=== PATIENT | male | born 1940 | race Caucasian/White ===

== ENCOUNTER 2016-11-24 00:53 | Inpatient (IN) | payer OTHER ==
--- NOTE | ~2016-11-24 | OR ---
Unit #: [id number] #: [id number] Patient: SHAYLA MILLER [id number] [facility] [[email or web address] [place] [id number] [facility]. [place], [place] [address] [id number] Brendan MR#: [id number] NAME: SHAYLA MILLER ROOM: 236 Date of Procedure: 11/28/2016 Admission Date: 11/24/2016 Surgeon: Genaro Carter III, M.D. : 1940 Attending Physician: La Recio M.D. OPERATIVE REPORT PREOPERATIVE DIAGNOSIS Small-bowel obstruction. POSTOPERATIVE DIAGNOSIS Small-bowel obstruction secondary to adhesions. PROCEDURES PERFORMED Exploratory laparotomy with lysis of adhesions. ANESTHESIA General. SPECIMENS None. COMPLICATIONS None apparent. ESTIMATED BLOOD LOSS Minimal. INDICATIONS FOR PROCEDURE This is a 75-year-old gentleman, who has findings consistent with small-bowel obstruction. He has not had any prior abdominal surgeries before. He is here today for exploratory laparotomy. DESCRIPTION OF PROCEDURE After consent was obtained, the patient was brought to the operating room and placed in the supine position. General anesthetic was administered. His abdomen was prepped and draped in standard surgical fashion. It was noted that his abdomen was distended. I made a small midline laparotomy and entered into the peritoneal cavity without any difficulty. He had some serous fluid present within the abdominal cavity that was evacuated. I then ran the small bowel, noted that the proximal bowel was dilated. I came to a spot in the right upper quadrant, where a knuckle of bowel was tucked up into what was either a small band of adhesion or small internal hernia. This was divided and I had immediate release of the bowel obstruction. The area of that bowel was narrowed; however, after observing it for several minutes did open up and I was able to milk enteric contents through that area easily. There was no evidence of any necrosis anywhere. I then had excellent hemostasis. I did not find any other abnormal intraabdominal pathology, although my exploration was Unit #: [id number] #: [id number] Patient: SHAYLA MILLER limited through the smaller incision. I then irrigated and had excellent hemostasis. All needle, sponge, and instrument counts were correct x2. I reapproximated the midline fascia with an interrupted #1 Vicryl suture. The skin edges were reapproximated with stapling device. He tolerated the procedure without any problems and returned to the recovery room in stable condition. Dictated by... Genaro Carter III, M.D. VCL/cherelle TD: 11/28/2016 23:12 JOB #: [id number] OPERATIVE REPORT Page 1 of 1 X Genaro Carter III, MD X PROCEDURE OPERATIVE NOTE
--- NOTE | ~2016-11-24 | CR4 ---
[facility] A Service of [facility] [place] [facility] RADIOLOGY TEXT RESULTS PATIENT: SHAYLA MILLER LOCATION: C2A 236-01 : 38 UNIT #: [id number] AGE: [address]: La Recio MD SEX: M ORDER DR: [id number] [facility] [address] [facility]. [place], [place] [address] [id number] I MR#: [id number] Acc #: [id number] NAME: SHAYLA MILLER : 1940 SEX: M STUDY DATE/TIME: 11/26/2016 12:16 UNIT: [facility] ROOM: [facility] STUDY DESCRIPTION: CR Abdomen Flat Upright or Dec Attending Physician: La Recio M.D. Ordering Physician: La Recio M.D. Primary Care Physician: Primary Care Physician No MEDICAL IMAGING REPORT This report is preliminary unless electronic signature is present EXAM Supine and upright AP views of the abdomen COMPARISON CT abdomen and pelvis dated November 24, 2016. INDICATION 75-year-old male with upper abdominal pain after endoscopy 4 days ago. FINDINGS There is no free subdiaphragmatic air. There is mild gaseous distension of colon in the right upper quadrant of the abdomen with gas distended small bowel loops seen throughout the abdomen, measuring up to approximately 3.1 cm in caliber. Degenerative disc and endplate changes are noted at T9-T10 through T11-T12. There is also degenerative disc change at L4-L5, likely L5-S1 as well. Previously on CT there was a short loop of abnormally dilated small bowel which is actually just under normal limits in caliber. IMPRESSION Increasing diffuse abnormal mild dilatation of small bowel loops throughout the abdomen measuring up to 3.1 cm as compared to two days ago. Findings could reflect an ileus although they are worrisome for developing small bowel obstruction. No perforation. Dictated by... Dean Avilez M.D. THIS IS AN ELECTRONICALLY VERIFIED REPORT Dean Avilez M.D. at 12/03/2016 1:33 PM ANDREA/lino TD: 11/26/2016 13:08 [facility] A Service of [facility] [place] [facility] RADIOLOGY TEXT RESULTS PATIENT: SHAYLA MILLER LOCATION: A 236-01 : 38 UNIT #: [id number] AGE: [address]: La Recio MD SEX: M ORDER DR: JOB #: [id number] MEDICAL IMAGING REPORT Page 1 of 1 COPY
--- NOTE | ~2016-11-24 | OR ---
Unit #: [id number] #: [id number] Patient: SHAYLA MILLER [id number] [address] [place], [place] [address] [id number] I MR#: [id number] NAME: SHAYLA MILLER ROOM: 236 Date of Procedure: 12/06/2016 Admission Date: 11/24/2016 Surgeon: Vernon Pennington M.D. : 1940 Attending Physician: La Recio M.D. OPERATIVE REPORT PREOPERATIVE DIAGNOSIS Urinary retention. POSTOPERATIVE DIAGNOSIS Urinary retention. PROCEDURES PERFORMED Cystoscopy, transurethral resection of prostate. ANESTHESIA General. DESCRIPTION OF PROCEDURE After informed consent, he was taken to the operating room and placed under general anesthetic. He was positioned in lithotomy. His penis and perineum were prepped and draped in the usual sterile fashion. Cystoscopy was performed. Showing trilobar hyperplasia. He had edema in his bladder wall secondary to the catheter. There were no tumors visible. The entire bladder was inspected. The resectoscope was used and prostate tissue was resected in a systematic fashion starting at the 6 o'clock position. The resection was carried out to the verumontanum, but not beyond it and not beyond the external sphincter. The resection was also carried out down to the capsule, but not beyond the capsule. The prostate chips were irrigated out and sent to Pathology. Repeat inspection of the bladder showed normal-appearing left and right ureteral orifices; they were at good location. There was clear efflux of urine from left and right. There were no tumors visible. At the end of the procedure, there was no pulsatile bleeding. Hemostasis was achieved using electrocautery. A 3-way catheter was placed to drainage and continuous bladder irrigation was started and will continue postop. The patient tolerated the procedure well. He will be taken to recovery and returned to the floor. Dictated by... Killian Ysot/cherelle TD: 12/07/2016 08:00 JOB #: [id number] Unit #: [id number] #: [id number] Patient: SHAYLA MILLER OPERATIVE REPORT Page 1 of 1 X Vernon Pennington MD PROCEDURE OPERATIVE NOTE
--- NOTE | ~2016-11-24 | DS ---
Unit #: [id number] #: [id number] Patient: SHAYLA MILLER [id number] [facility]. [address] [address] [id number] I MR#: [id number] NAME: SHAYLA MILLER ROOM: 236 Age: 75 Sex: M Admission Date: 11/24/2016 : 1940 Discharge Date: 12/08/2016 Attending Physician: La Recio M.D. Primary Care Physician: No Primary Care Physician DISCHARGE SUMMARY DIAGNOSIS ON ADMISSION Abdominal pain. DIAGNOSES ON DISCHARGE 1. Small bowel obstruction status post exploratory laparotomy and lysis of adhesion. 2. Acute urinary retention status post transurethral resection of prostate. 3. Acute respiratory failure, resolved. 4. Bilateral knee synovitis, resolved. CONSULTATIONS 1. Dr. Carter in Surgical consultation. 2. Dr. Colunga in Orthopaedic consultation. 3. Dr. Segal in Pulmonary consultation. 4. Dr. Pennington in Urology consultation. LABS AND PROCEDURES DONE 1. The patient had an exploratory laparotomy done with lysis of adhesion. 2. The patient had a transurethral resection of prostate done. 3. The patient's creatinine is 0.9, sodium 134, potassium 4.4. 4. WBC 15.0, hemoglobin 11.5, platelet count 469. The patient has leukocytosis because of steroids. HOSPITAL COURSE This 75-year-old male was admitted to the hospital with abdominal pain. Details are as per admission H and P. Abdominal pain: Initially, it was thought the patient may have acute colitis but, as patient's symptoms did not improve, the patient had exploratory laparotomy done and lysis of adhesion for small bowel obstruction. The patient is tolerating diet and is doing well. Acute urinary retention: The patient failed a voiding trial. Therefore, Urology did transurethral prostate resection. The patient is tolerating it well and his urine is being cleared and is clearing up. The patient complained of bilateral knee pain. Orthopaedics saw patient in consultation and did an arthrocentesis. The synovial fluid was negative and culture was negative. The patient was started on Medrol Dosepak. The patient responded well and pain has resolved. Leukocytosis secondary to steroids. Unit #: [id number] #: [id number] Patient: PAUL,SHAYLA Today, the patient is comfortable, is anxious to go home. PHYSICAL EXAMINATION VITAL SIGNS: Temperature 97.9. Pulse 71 per minute. Respiratory rate 16 per minute. Blood pressure 133/59. HEENT: No conjunctival congestion. Sclerae nonicteric. NECK: Supple. Trachea is centered. RESPIRATORY: Breath sounds equal bilaterally. There are no wheezes or crackles. HEART: Regular rate and rhythm. S1, S2. ABDOMEN: Soft, nontender. Bowel sounds are present in all four quadrants. The patient's abdominal incision is clean and dry. NEUROLOGIC: The strength is 4+ bilaterally. SKIN: Warm and dry. CONDITION Stable. ACTIVITY As tolerated. MEDICATIONS 1. Rapaflo 8 mg daily. 2. Prilosec 40 mg p.o. daily. 3. Proscar 5 mg p.o. daily. FOLLOWUP The patient is advised to follow up with Dr. Carter and Dr. Pennington in one week. The patient is advised to call primary care physician or go to ER if his condition changes. The patient stated that, after following up with the surgeons, he will go back to [place] and will follow up with his primary care physician. Dictated by... Killian Mckenzie/nicolás TD: 12/08/2016 13:01 JOB #: [id number] CC: Killian Yost M.D. Vincent C. Lusco, III, M.D. DISCHARGE SUMMARY Page 1 of 1 X La Recio MD DISCHARGE SUMMARY
--- NOTE | ~2016-11-24 | CR4 ---
[facility] A Service of [facility] & [facility] RADIOLOGY TEXT RESULTS PATIENT: SHAYLA MILLER LOCATION: C2A 236-01 : 38 UNIT #: [id number] AGE: [address]: La Recio MD SEX: M ORDER DR: [id number] [facility] [address] [facility] [place] [facility]. [place], [place] [address] [id number] I MR#: [id number] Acc #: [id number] NAME: SHAYLA MILLER : 1940 SEX: M STUDY DATE/TIME: 12/02/2016 12:12 UNIT: [facility] ROOM: [facility] STUDY DESCRIPTION: CR Abdomen Flat Upright or Dec Attending Physician: La Recio M.D. Ordering Physician: Genaro Carter III, M.D. MEDICAL IMAGING REPORT This report is preliminary unless electronic signature is present EXAM Flat and upright views of the abdomen HISTORY Follow up postop ileus. COMPARISON STUDIES 11/26/2016. FINDINGS Today's flat and upright views of the abdomen again shows some dilated small bowel loops but they appear slightly less numerous than on 11/26/2016. There is oral contrast in the colon and the colon is not distended. There is no free air. Dictated by... Nick Rogers M.D. THIS IS AN ELECTRONICALLY VERIFIED REPORT Nick Rogers M.D. at 12/03/2016 7:02 AM FEL/pcl TD: 12/02/2016 21:18 JOB #: [id number] MEDICAL IMAGING REPORT Page 1 of 1 COPY
--- NOTE | ~2016-11-24 | A ---
[facility] Nutrition Therapy DATE: 11/29/16 Patient: SHAYLA IMLLER Physician: ALVIN [facility] [address] Room/Bed: [address] [place] [address], Zip: [place] [address] Admit Date: 11/24/16 Date of : 38 Height: 5 7 Weight: 165 75 NUTRITIONAL ASSESSMENT: REASON: NPO/CLEAR LIQUID DIET X 5 DAYS PT IS 75 Y.O. MALE ADMITTED FOR ABD PAIN PMH: GERD, BPH Anthropometrics: 5'7", WT: 165# ( 75 KG), BMI: 25.8 Labs: BUN: 26, CA+:7.1, ALB: 2.8, LIPASE: 15 Meds: KCL, PROTONIX, ZOFRAN, NACL I/O & Bowel function: 2370/1460 Skin Integrity: NG TUBE (JUST D/C'D) Estimated Nutrition Needs: INCREASED NEEDS 2' CURRENT CONDITION Assessment: CHART REVIEWED AND EVENTS NOTED. PT SEEN FOR NPO/CLEAR LIQUID DIET X 5 DAYS. PT REPORTS APPETITE IMPROVING, NOTING N/V/MIDEPIGASTRIC PAIN SLOWLY SUBSIDING. PT ADDS DECREASED PO INTAKE AND APPETITE A FEW DAYS PRIOR TO ADMIT 2' ABOVE. PT REPORTS CONSUMING "MOST OF HIS CLEAR LIQUID TRAYS" SINCE ADMIT. PT NOTES GOOD PO INTAKE AND APPETITE PRIOR TO ADMIT. PT DENIES ANY RECENT WEIGHT LOSS. PER RN AND CHART, PT IS S/P EXPLORATORY LAP FOR ?SMALL BOWEL OBSTRUCTION. PT IS ALSO S/P EGD REVEALING MILD GASTRITIS, CHRONIC REFLUX. RD ENCOURAGED SLOW GRADUAL PO INTAKE + SUPPLEMENT INTAKE, PT AGREED TO ENSURE CLEAR TID. PT AND FAMILY REPORTED NO DIET QUESTIONS AT THIS TIME. RD TO FOLLOW. SEE RECOMMENDATIONS BELOW. Dx: INADEQUATE PROTEIN-ENERGY INTAKE R/T CURRENT DIAGNOSIS AEB PT REPORT ABOVE, NPO/CLEAR X 5 DAYS. Intervention: 1. NON-CARBONATED CLEAR LIQUID DIET 2. ENSURE CLEAR TID W/MEALS Monitoring, Evaluation and Goals: 1. ORAL INTAKE; ADVANCE DIET AND CONSUME >50% OF MEALS AND SUPPLEMENTS 2. WEIGHTS; PROMOTE WEIGHT MAINTENANCE 3. LABS; WNL 4. GI; PROMOTE REGULAR GI FUNCTION MONITOR: [facility] Nutrition Therapy DATE: 11/29/16 Patient: SHAYLA MILLER Physician: ALVIN [facility] Room/Bed: [address] [place] [address], Zip: [place] [address] Admit Date: 11/24/16 Date of : 38 Height: 5 7 Weight: 165 75 -DIET ADVANCEMENT -SUPPLEMENT INTAKE -PO INTAKE/APPETITE Recommendations: 1. PLEASE ORDER MIXED FERRIS ENSURE CLEAR TID W/MEALS 2. ONCE MEDICALLY FEASIBLE, BEGIN WITH FULL LIQUID (BEYOND CLEAR LIQUID), ADVANCE TOLERATED TO LOW FIBER/GI SOFT 3. ONCE DIET ADVANCES BEYOND CLEARS, PLEASE ORDER STRAW ENSURE SHAKES TID W/MEALS (PER PT REQUEST) 4. ENCOURAGE SLOW GRADUAL PO INTAKE + SUPPLEMENTS 5. IF DIET DOES NOT ADVANCE BEYOND CLEARS, CONSULT RD FOR ALTERNATIVE NUTRITION SUPPORT RECOMMENDATIONS RD WILL F/U PER PROTOCOL PT IS MILDLY COMPROMISED Respectfully, CHICA LYNN MS, RD, LD [facility] cc: client file
--- NOTE | ~2016-11-24 | CT2 ---
[facility] A Service of [facility] & [facility] RADIOLOGY TEXT RESULTS PATIENT: SHAYLA MILLER LOCATION: [facility] 236-01 : 38 UNIT #: [id number] AGE: [address]: La Recio MD SEX: M ORDER DR: [id number] [facility] [address] [facility]. [place], [place] [address] [id number] MR#: [id number] Acc #: [id number] NAME: SHAYLA MILLER : 1940 SEX: M STUDY DATE/TIME: 11/24/2016 6:05 UNIT: [facility] ROOM: STUDY DESCRIPTION: CT Abd and Pelv W Cont Attending Physician: Néstor Singleton M.D. Ordering Physician: Gretchen Looney M.D. Primary Care Physician: Primary Care Physician No MEDICAL IMAGING REPORT This report is preliminary unless electronic signature is present EXAM CT abdomen and pelvis with IV contrast COMPARISON None. INDICATION 75-year-old male with mid abdominal pain radiating to the back for 1 day. Nausea and emesis. TECHNIQUE This CT examination was performed with one or more of the following radiation dose reduction techniques: automatic exposure control, adjustment of mA and/or kV according to patient size, and iterative reconstruction. FINDINGS Axial CT imaging of the abdomen and pelvis was performed after IV administration of 100 mL of Isovue-370. Coronal and sagittal reformats were constructed. Nodular density in the subcutaneous fat of approximately the 6 o'clock left chest may reflect gynecomastia. There are small fat-containing bilateral inguinal hernias. Prostate gland is unremarkable. There is multilevel thoracolumbar degenerative disc and endplate change. There are posterior disc osteophyte complexes at all levels of the lumbar spine. Multilevel mild degenerative facet disease of the lower lumbar spine. There is dextroscoliosis of the thoracolumbar junction. Dependent atelectasis in both lung bases. In the lingula, there are 3 pleural based nodular densities largest of which measures up to 9 mm. Separate noncalcified nodule in the left lower lobe measuring up to 6 mm with another noncalcified nodule left lower lobe measuring up to 4 mm. [facility] A Service of [facility] & [facility] RADIOLOGY TEXT RESULTS PATIENT: SHAYLA MILLER LOCATION: [facility] 236-01 : 38 UNIT #: [id number] AGE: [address]: La Recio MD SEX: M ORDER DR: There is a calcified granuloma separately in the left lower lobe. Noncalcified 4 mm nodule in the posterior basilar segment right lower lobe. There is a small hiatal hernia. Appendix is normal. In the right upper quadrant of the abdomen, there are 2 mildly fluid distended small bowel loops which appears stacked next to each other, with fat stranding in the supplying mesentery. This would suggest an acute enteritis. Developing small bowel obstruction cannot entirely be excluded. There is no adenopathy. No free fluid, or pneumoperitoneum. The abdominal aorta is mildly tortuous but normal in caliber. There is calcification at the origin of the celiac artery which remains widely patent. Bilateral pelvic phleboliths. Punctate densities seen near the gallbladder neck which may represent prominent enhancing vessels or alternatively layering cholelithiasis. No evidence of acute cholecystitis. Hyperenhancing lesion measuring up to 7 mm in the posterior segment of the right hepatic lobe, favoring a flash hemangioma. Spleen, adrenal glands and kidneys are unremarkable. No hydronephrosis or hydroureter. No evidence of renal or ureteral calculus. IMPRESSION 1. Short segment distension of 2 small bowel loops in the right upper quadrant of the abdomen stacked adjacent to each other with fat stranding into the supplying mesentery. The findings would seem to reflect an acute enteritis of uncertain etiology. Correlation to exclude signs of possible developing closed-loop bowel obstruction is recommended, which would be unlikely in the absence of known history of abdominal surgery. 2. Density in the subcutaneous fat of the left breast, possibly reflecting asymmetric gynecomastia. Correlation with physical exam is recommended. 1 could consider outpatient diagnostic mammography for further characterization. 3. Diffuse degenerative changes of the lumbar spine as described in the body of the report. 4. Small fat-containing inguinal hernias. 5. Multiple noncalcified left lung pulmonary nodules with a single calcified granuloma as well as a separate noncalcified nodule in the right lower lobe. The largest of these noncalcified nodules measures up to 9 mm. Given constellation of findings, this would seem to favor remote pulmonary granulomatous infection. CT chest followup without IV contrast is recommended in 3 months to document stability if there are no remote comparison CTs at another facility. 6. Small hiatal hernia. 7. Tiny enhancing vessels near the gallbladder neck versus cholelithiasis. No evidence of acute cholecystitis. 8. 7 mm hyperenhancing focus in the posterior segment of the right hepatic lobe favoring either a flash hemangioma or a small arteriovenous malformation. Only in the setting of known liver disease or other history of malignancy, CT abdomen with and without contrast would be recommended for further evaluation. Otherwise no followup is indicated. [facility] A Service of [facility] RADIOLOGY TEXT RESULTS PATIENT: SHAYLA MILLER LOCATION: [facility] 236-01 : 38 UNIT #: [id number] AGE: [address]: La Recio MD SEX: M ORDER DR: Dictated by... Dean Avilez M.D. THIS IS AN ELECTRONICALLY VERIFIED REPORT Dean Avilez M.D. at 11/30/2016 2:25 PM ANDREA/tawnya TD: 11/24/2016 07:14 JOB #: [id number] MEDICAL IMAGING REPORT Page 1 of 1 COPY
--- NOTE | ~2016-11-24 | OR ---
Unit #: [id number] #: [id number] Patient: SHAYLA MILLER [id number] [address] [address] [id number] I MR#: [id number] NAME: SHAYLA MILLER ROOM: 334 Date of Procedure: 11/25/2016 Admission Date: 11/24/2016 Surgeon: Elieser Hand M.D. : 1940 Attending Physician: La Recio M.D. OPERATIVE REPORT PREOPERATIVE DIAGNOSIS Abdominal pain, rule out peptic ulcer disease. POSTOPERATIVE DIAGNOSES Mild antral gastritis, contusions of the cardia probably secondary to nasogastric tube, and evidence of chronic reflux. No ulcers or tumors seen. PROCEDURE PERFORMED Esophagogastroduodenoscopy with antral and esophageal biopsies. ANESTHESIA MAC. COMPLICATIONS None. ESTIMATED BLOOD LOSS Minimal. DESCRIPTION OF PROCEDURE After the patient was prepped and draped in the usual fashion, the scope was introduced through the mouth into the esophagus without difficulty. Stomach was intubated and insufflated. There was noted to be some very mild antral gastritis. There were no ulcers or tumors within the antrum. Pictures and biopsies were taken. Duodenum was intubated and insufflated. This was visually normal down through the fourth portion. The scope was brought back into the stomach. Body and cardia examined by retroflexion. There was some contused areas in the cardia, which were just adjacent to the nasogastric tube and I believe these are secondary to suction trauma. There were no other diagnostic abnormalities. There was not a hiatal hernia at the time of the examination. The scope was brought back into the lower esophagus. The Z-line was indistinct. There was evidence of chronic reflux, but no ulcers, tumors, or varices were present. Pictures and lower esophageal biopsies were taken. The proximal esophagus was visually within normal limits. With this, the scope was removed. The patient was taken to the recovery room in good condition. Dictated by... Elieser Hand M.D. Unit #: [id number] #: [id number] Patient: SHAYLA MILLER ISABELLE/cherelle TD: 11/25/2016 12:15 JOB #: [id number] OPERATIVE REPORT Page 1 of 1 X Elieser Hand PROCEDURE OPERATIVE NOTE
--- NOTE | ~2016-11-24 | CO ---
Unit #: [id number] #: [id number] Patient: SHAYLA MILLER [id number] [address] [place], [place] [address] [id number] I MR#: [id number] NAME: SHAYLA MILLER ROOM: 236 Age: 75 Sex: M Admission Date: 11/24/2016 : 1940 Attending Physician: La Recio M.D. Consultation Date: 12/03/2016 CONSULTATION REPORT REASON FOR CONSULTATION Shortness of breath. HISTORY OF PRESENT ILLNESS A 75-year-old gentleman, who denies any diagnosed lung disease, although he did have increasing dyspnea on exertion prior to admission. He was admitted with abdominal discomfort. Ultimately, was found to have small bowel obstruction and underwent exploratory laparotomy with lysis of adhesions. We were asked to see the patient today by Dr. Carter. He denies fever, sputum production, chest pain, or hemoptysis. He has been told that he has wheezing on occasion, but he has never perceived wheezing himself. PAST MEDICAL HISTORY Remarkable for; 1. Benign prostatic hypertrophy. 2. Urinary retention. 3. He denies any heart disease or lung disease. HOME MEDICATIONS 1. Flomax. 2. Prilosec. 3. Proscar. ALLERGIES No known medical allergies. SOCIAL HISTORY Quit smoking in the 1960s. He actually is from [place], visiting his girlfriend here. 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 FAMILY HISTORY No familial lung disease, but significant heart disease. REVIEW OF SYSTEMS He has developed urinary retention and is following him. He developed knee pain and effusion, and Ortho is seeing him and I believe he is being treated for pseudogout. He denies fever, chest pain, palpitations, appropriate abdominal pain from his surgery. No leg pain or swelling. He does have urinary retention. He has not noticed any hematuria. No focal weakness or paresthesias. He does snore. He does complain of "something falling back in my throat when I lay down," which is probably his uvula. PHYSICAL EXAMINATION Unit #: [id number] #: [id number] Patient: SHAYLA MILLER GENERAL: Reveals a patient, who is in no acute distress. On 2 L. VITAL SIGNS: He is afebrile. Pulse 68, respiratory rate 16, blood pressure 144/78, and 5 foot 7 inches, and 165 pounds. HEENT: Pupils are equal, round, and reactive to light. Sclerae are anicteric. Head is atraumatic. NECK: Supple. No supraclavicular or cervical adenopathy appreciated. Jugular venous pressures appear normal. Mucous membranes are moist. Mallampati class IV oropharynx. He is edentulous. CHEST: He did have crackles posteriorly some of which cleared with deep inhalation maneuvers; however, he had some persistent fine crackles in right lower lobe greater than left. There was no wheeze or stridor. CARDIAC: Reveals regular rate and rhythm. No pathologic murmur, rub, or gallop. ABDOMEN: Postop. Appropriately tender. EXTREMITIES: Reveal no clubbing, cyanosis, or edema. No calf tenderness. SKIN: Warm and dry without rash or diaphoresis. NEUROLOGIC: Grossly intact. No focal motor or sensory deficits. DIAGNOSTICS STUDIES IMAGING STUDIES: Chest x-ray has just been performed; tiny pleural effusions. I do not see any pneumonia. I do not see any definite interstitial lung disease. Formal report is pending. LABORATORY STUDIES: BUN is 12 and creatinine 0.9. White blood cell count is 17, hemoglobin 11.4, and platelet count is 331. Urinalysis; trace protein otherwise negative. IMPRESSION 1. Shortness of breath, which even pre-dated admission. His shortness of breath currently is aggravated at least in part, by atelectasis. He may have some underlying fibrosis based on history and exam. I doubt that there is acute pneumonia. Small pleural effusion at least raise the possibility of pulmonary edema. 2. Postop small bowel obstruction and exploratory lap. 3. Pseudogout. 4. Urinary retention. 5. DNR status. PLAN Incentive spirometry. Follow up formal x-ray report. Nebulize bronchodilators. We will check BNP and procalcitonin level on today's blood. Ultimately he will need PFTs and if restrictive, high-resolution CAT scan of the chest as an outpatient. This likely will have to be done in [place] after he is recovered from his abdominal surgery. If his BNP is elevated, we will check an echocardiogram. Consider outpatient evaluation of sleep apnea with nocturnal polysomnography. Dictated by... Jamil Segal M.D. ABIGAIL/cherelle TD: 12/03/2016 16:59 JOB #: [id number] Unit #: [id number] #: [id number] Patient: PAULSHAYLA CONSULTATION REPORT Page 1 of 1 X Jamil Segal MD CONSULTATION REPORT
--- NOTE | ~2016-11-24 | CR63 ---
[facility] A Service of [facility] & [facility] RADIOLOGY TEXT RESULTS PATIENT: SHAYLA MILLER LOCATION: C2A 236- : 38 UNIT #: [id number] AGE: [address]: La Recio MD SEX: M ORDER DR: [id number] [facility] [address] [facility]. [place], [place] [address] [id number] I MR#: [id number] Acc #: [id number] NAME: SHAYLA MILLER : 1940 SEX: M STUDY DATE/TIME: 12/03/2016 13:44 UNIT: A ROOM: 236 STUDY DESCRIPTION: CR Chest 2 View Attending Physician: La Recio M.D. Ordering Physician: La Recio M.D. Primary Care Physician: Primary Care Physician No MEDICAL IMAGING REPORT This report is preliminary unless electronic signature is present EXAM Two views of the chest, 12/03/16 HISTORY Short of air, weakness, altered mental status. Two days' duration. FINDINGS PA and lateral radiographs of the chest are presented. No comparisons. Degenerative changes in the spine. No acute-appearing bony abnormality. Heart adrpmw-su-ocznm limits of normal in size. Lungs well inflated. Blunting of the bilateral posterior costophrenic sulci on lateral view suggesting trace bilateral pleural effusions. No dense airspace disease is seen. There is no evidence of pulmonary vascular congestion or parenchymal edema. No pneumothorax. No suspicious nodule. Bowel gas pattern in upper abdomen shows air-filled but not pathologically dilated loops of small bowel and colon. No free air. Dictated by... Bhupendra Jenkins M.D. THIS IS AN ELECTRONICALLY VERIFIED REPORT Bhupendra Jenkins M.D. at 12/04/2016 11:31 AM RICHA/criselda TD: 12/03/2016 23:26 JOB #: [id number] MEDICAL IMAGING REPORT Page 1 of 1 COPY
--- NOTE | ~2016-11-24 | CR236 ---
[facility] A Service of [facility] RADIOLOGY TEXT RESULTS PATIENT: SHAYLA MILLER LOCATION: C2A 236- : 38 UNIT #: [id number] AGE: [address]: La Recio MD SEX: M ORDER DR: [id number] [facility] [address] [facility]. [place], [place] [address] [id number] I MR#: [id number] Acc #: [id number] NAME: SHAYLA MILLER : 1940 SEX: M STUDY DATE/TIME: 11/27/2016 13:50 UNIT: A ROOM: [facility] STUDY DESCRIPTION: CR Small Bowel Sbft W Films Attending Physician: La Recio M.D. Ordering Physician: La Recio M.D. Primary Care Physician: Primary Care Physician No MEDICAL IMAGING REPORT This report is preliminary unless electronic signature is present EXAM Small bowel follow through 11/27/2016 INDICATION Nausea, vomiting, abdominal pain for 4 days. Small bowel obstruction. FINDINGS Crate Maker image of the abdomen shows multiple gas filled small bowel loops that appear distended up to about 4.2 cm. These appear worsened from the radiographs obtained yesterday. Patient ingested oral barium contrast. There is filling of the jejunum and maybe the proximal ileum. However, the entire small bowel did not fill and the exam was carried out to about 7 hours. At 7 hours, there is residual contrast in the stomach. The exam was terminated at this time. 7 flat plate images were obtained. Fluoro was not employed for this exam. IMPRESSION Images confirm a high-grade small bowel obstruction. Contrast never reached the distal ileum up through 7 hours. At 7 hours, there is still barium in the stomach. Dictated by... Patricio Aguilera Jr., M.D. THIS IS AN ELECTRONICALLY VERIFIED REPORT Patricio Aguilera Jr., M.D. at 11/29/2016 7:36 AM SRIKANTH/tawnya TD: 11/28/2016 07:27 [facility] A Service of [facility] RADIOLOGY TEXT RESULTS PATIENT: SHAYLA MILLER LOCATION: [facility] 236-01 : 38 UNIT #: [id number] AGE: [address]: La Recio MD SEX: M ORDER DR: JOB #: [id number] MEDICAL IMAGING REPORT Page 1 of 1 COPY
--- NOTE | ~2016-11-24 | CO ---
Unit #: [id number] #: [id number] Patient: SHAYLA MILLER [id number] [address] [place], [place] [address] [id number] I MR#: [id number] NAME: SHAYLA MILLER ROOM: 236 Age: 75 Sex: M Admission Date: 11/24/2016 : 1940 Attending Physician: La Recio M.D. Primary Care Physician: Jaja Primary Care Physician Requesting Physician: Genaro Carter III, M.D. Consultation Date: 12/01/2016 CONSULTATION REPORT CHIEF COMPLAINT Urinary retention. HISTORY OF PRESENT ILLNESS Patient is a 75-year-old male who is postoperative day 3, status post exploratory laparotomy and lysis of adhesions. His Briceno catheter was removed yesterday and he is voiding only small amounts. He has a long history of BPH. He is on Flomax and Proscar. He has not been seen by a urologist for several years. He has a prior history of urinary retention that he was hospitalized for in the distant past in October. He denies gross hematuria or dysuria. He denies previous prostate surgery. PAST MEDICAL HISTORY BPH. PAST SURGICAL HISTORY Exploratory laparotomy and lysis of adhesions. SOCIAL HISTORY Negative for alcohol. Negative for tobacco use. He is from [place] and here visiting girlfriend. FAMILY HISTORY Significant for cardiovascular disease. MEDICATIONS At home include: 1. Proscar. 2. Flomax. 3. Omeprazole. REVIEW OF SYSTEMS Complete review of systems was performed and is positive for urinary retention. It is negative for gross hematuria and was positive on admission for abdominal pain. PHYSICAL EXAMINATION GENERAL: This is a well developed, white male in no acute distress. VITAL SIGNS: Temperature is 98.4 and blood pressure 126/74. HEENT: Normocephalic and atraumatic. Extraocular movements are intact. NECK: Supple with no lymphadenopathy. CHEST: Symmetric chest rise. Breathing comfortably. Regular rate and rhythm. ABDOMEN: Soft, nontender, and nondistended. His surgical dressing is Unit #: [id number] #: [id number] Patient: SHAYLA MILLER clean, dry, and intact. : Digital rectal exam reveals a very enlarged prostate. There were no nodules. DIAGNOSTIC STUDIES LABORATORY: Significant for a creatinine of 1. ASSESSMENT AND PLAN Urinary retention, status post exploratory laparotomy. Will continue his Proscar. We will switch his Flomax to [place]aflo. We will replace the Briceno for now and will likely plan a voiding trial in 1-2 days. If he is unable to void, he can be discharged home with a catheter. If he wants to go back to [place], he can see a urologist there. If he wants to see us, we would repeat a voiding trial in about a week in the office. Ultimately, he may require a transurethral resection of his prostate. Dictated by... Sav Davenport M.D. [place] TD: 12/01/2016 07:20 JOB #: [id number] CONSULTATION REPORT Page 1 of 1 X Sav Davenport MD X CONSULTATION REPORT
--- NOTE | ~2016-11-24 | FU ---
[facility] Nutrition Therapy DATE: 12/05/16 Patient: SHAYLA MILLER Physician: ALVIN Address: [facility] STEVEN SARAH Room/Bed: [address] [place] [address], Zip: [place] [address] Admit Date: 11/24/16 Date of : 38 Height: 5 7 Weight: 165 75 NUTRITION MONITORING/FOLLOW-UP: Reason: PT SEEN FOR FOLLOW-UP DX: ABD PAIN Anthropometrics: 5'7", WT: 165# (ADMIT WEIGHT) (75 KG), BMI: 25.8 Labs: GLU: 128, CA+:8.0, NA+:133 Meds: KCL, MAG SULFATE, PROTONIX, ZOFRAN I&O's: 2100/3507, 6 BMs NOTED Skin: NO KNOWN SKIN ISSUES Assessment: CHART REVIEWED AND EVENTS NOTED. PT SEEN FOR FOLLOW-UP. PER CHART, PT IS POD #7 EXPLORATORY LAP W/LYSIS OF ADHESIONS. PT REPORTS APPETITE SLOWLY IMPROVING, NOTING EATING ~50% BREAKFAST THIS AM AND 100% LUNCH TODAY (PT HAD LUNCH TRAY AT BEDSIDE-NOTED PT ATE 100%). RD ENCOURAGED SLOW GRADUAL PO INTAKE + SUPPLEMENTS, PT AGREED TO ENSURE SHAKES BID + CONTINUING TO DRINK ENSURE CLEAR DAILY. RD ALSO PROVIDED VERBAL AND WRITTEN AND LOW FIBER DIET EDUCATION. PT DEMONSTRATED UNDERSTANDING OF THE TOPIC. PT REPORTED NO DIET QUESTIONS AT THIS TIME. RD TO CONTINUE TO FOLLOW NEEDED. Dx: INADEQUATE PROTEIN-ENERGY INTAKE R/T CURRENT DIAGNOSIS AEB NPO/CLEAR X 5 DAYS.-RESOLVED NEW DX: ALTERED NUTRIENT NEEDS R/T CURRENT CLINICAL CONDITION AEB NEED FOR THERAPEUTIC DIET ORDER. Intervention: 1. LOW FIBER DIET 2. ENSURE SHAKES BID 3. ENSURE CLEAR ONCE DAILY 4. DIET EDUCATION PROVIDED Monitoring, Evaluation and Goals: 1. ORAL INTAKE; ADVANCE DIET AND CONSUME >50% OF MEALS W/NO C/O N/V/D-MET/ACTIVE 2. WEIGHTS; PROMOTE WEIGHT MAINTENANCE-IN PROGRESS 3. LABS; WNL-IN PROGRESS/ACTIVE 4. GI; PROMOTE REGULAR GI FUNCTION-IN PROGRESS MONITOR: -PO INTAKE/APPETITE -SUPPLEMENT INTAKE -UPDATED WEIGHTS [facility] Nutrition Therapy DATE: 12/05/16 Patient: SHAYLA MILLER Physician: ALVIN Address: [facility] STEVEN SARAH Room/Bed: [address] [place] [address], Zip: [place] [address] Admit Date: 11/24/16 Date of : 38 Height: 5 7 Weight: 165 75 -LABS Recommendations: 1. PLEASE PROVIDE CURRENT WEIGHT IN MEDITECH 2. PLEASE ORDER STRAW ENSURE SHAKES (LUNCH & DINNER) + ENSURE CLEAR MIXED FERRIS W/BREAKFAST MEAL 3. CONTINUE TO ENCOURAGE ADEQUATE PO INTAKE 4. CONSULT RD IF ADDITIONAL DIET EDUCATION REQUESTED RD WILL F/U PER PROTOCOL PT IS MILDLY COMPROMISED Respectfully, CHICA LYNN MS, RD, LD [employer] [facility] [employer] cc: client file
--- NOTE | ~2016-11-24 | CO ---
Unit #: [id number] #: [id number] Patient: SHAYLA THOMAS [id number] [address] [place], [place] [address] [id number] I MR#: [id number] NAME: SHAYLA THOMAS ROOM: 236 Age: 75 Sex: M Admission Date: 11/24/2016 : 1940 Attending Physician: La Recio M.D. Primary Care Physician: Primary Care Physician No Consultation Date: 12/01/2016 CONSULTATION REPORT CHIEF COMPLAINT Bilateral knee pain. HISTORY OF PRESENT ILLNESS Mr. Thomas is a 75-year-old gentleman with a 4-day history of left knee pain and now a 1-day history of right knee pain that got progressively worse since he has been hospitalized. He is status post exploratory laparotomy with lysis of adhesions. He states the pain in both knees has gotten progressively worse where he can no longer ambulate. Orthopedics was consulted for bilateral knee pain. PAST MEDICAL HISTORY 1. BPH. 2. Recent exploratory laparotomy. HOME MEDICATIONS 1. Proscar. 2. Flomax. 3. Omeprazole. SOCIAL HISTORY Negative for alcohol or tobacco use. He lives in [place]. He is visiting his girlfriend. FAMILY HISTORY Cardiovascular disease. REVIEW OF SYSTEMS Positive for urinary retention, abdominal pain and bilateral knee pain. PHYSICAL EXAMINATION VITAL SIGNS: Afebrile stable vital signs. GENERAL: Pleasant white male who appears to be in mild distress complaining of abdominal pain and bilateral knee pain. HEENT: Normocephalic, atraumatic. Extraocular movements are intact. NECK: Supple without visible JVD. LUNGS: No audible expiratory wheeze. ABDOMEN: Mildly distended. Surgical dressing in place. Minimal drainage. MUSCULOSKELETAL: Demonstrates bilateral knee effusions, left greater than right. There is increased warmth. He is very tender to palpation along the knee joint. Range of motion is very limited 0-15 degrees bilaterally, limited by pain. Ligaments are stable to varus/valgus stress testing. Neurovascularly intact distally. Unit #: [id number] #: [id number] Patient: SHAYLA THOMAS DIAGNOSTIC STUDIES IMAGING: X-rays left knee AP and lateral views were obtained and reviewed. These demonstrate no acute fracture. 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 There is large effusion present. IMPRESSION Bilateral knee effusions with probable pseudogout flare. PLAN I discussed treatment recommendations. Recommended aspiration by Interventional Radiology of the left knee to evaluate for crystals as well as a cell count. If there is the presence of crystals, then we will start systemic steroids. Further recommendations will follow aspiration results. Thank you for this consult. Dictated by... Killian Chin/rafael TD: 12/01/2016 22:15 JOB #: [id number] CONSULTATION REPORT Page 1 of 1 X Joseph Colunga MD X CONSULTATION REPORT
--- NOTE | ~2016-11-24 | CO ---
Unit #: [id number] #: [id number] Patient: SHAYLA THOMAS [id number] [address] [address] [id number] I MR#: [id number] NAME: SHAYLA THOMAS ROOM: 334 Age: 75 Sex: M Admission Date: 11/24/2016 : 1940 Attending Physician: La Recio M.D. CONSULTATION REPORT HISTORY OF PRESENT ILLNESS Mr. Thomas is a 75-year-old white male with no previous operative history, who has sudden onset of a 48-hour history of nausea, vomiting, midepigastric pain, leukocytosis, concentrated urine. He has had a history of gastroesophageal reflux, again no previous surgery. Nasogastric tube was placed, shows coffee-ground material with coffee-grounds emesis. CT scan shows no perforation, no abscess, but does show some enteritis with possible early small bowel obstruction. The ultrasound of the abdomen also shows gallbladder polyp, but no evidence of any type of gallbladder disease or obstruction. The pancreas looked normal. PHYSICAL EXAMINATION His abdomen is nondistended, no peritoneal signs, and his pain is certainly out of proportion to his exam. He points to the mid epigastric area where his pain is. His periumbilical and lower quadrants of the abdomen are benign on examination. IMPRESSION Not exactly sure what the etiology of his pain. It could be peptic ulcer disease, could be gastritis, it could be a true gastroenteritis. Does not have a lot of clinical evidence of bowel obstruction. I am going to check a lactic acid. I am going to give him extra fluids. I am going to check an amylase and lipase this morning. He may or may not need upper endoscopy. We will follow him very closely. Dictated by... Killian Shipman/cherelle TD: 11/25/2016 07:38 JOB #: [id number] Unit #: [id number] #: [id number] Patient: SHAYLA THOMAS CONSULTATION REPORT Page 1 of 1 X Liam Connelly MD X CONSULTATION REPORT
--- NOTE | ~2016-11-24 | EKG ---
PATIENT: SHAYLA MILLER UNIT #: [id number] Ventricular Rate: 64 BPM Atrial Rate: 64 BPM P-R Interval: 172 ms QRS Duration: 124 ms Q-T Interval: 446 ms QTC Calculation(Bezet): 460 ms P [place]: 38 degrees Calculated R [place]: 107 degrees Calculated T [place]: -9 degrees Diagnosis Line: Normal sinus rhythm Diagnosis Line: Right bundle branch block Diagnosis Line: Abnormal ECG Diagnosis Line: No previous ECGs available Diagnosis Line: Confirmed by AMRITA SEBASTIAN MD ([id number]) on Diagnosis Line: 11/24/2016 1:37:35 PM INTERPRETING MD: JAZ HUNG
--- NOTE | ~2016-11-24 | US6 ---
[facility] A Service of [facility] & [facility] RADIOLOGY TEXT RESULTS PATIENT: SHAYLA MILLER LOCATION: [facility] 236-01 : 38 UNIT #: [id number] AGE: [address]: La Recio MD SEX: M ORDER DR: [id number] [facility] [address] [facility] [facility] [place], [place] [address] [id number] I MR#: [id number] Acc #: [id number] NAME: SHAYLA MILLER : 1940 SEX: M STUDY DATE/TIME: 11/24/2016 10:36 UNIT: CEDOF ROOM: 07728 STUDY DESCRIPTION: US Abdominal Limited Attending Physician: Brittaney Tsang M.D. Ordering Physician: Brittaney Tsang M.D. Primary Care Physician: No Primary Care Physician MEDICAL IMAGING REPORT This report is preliminary unless electronic signature is present EXAM Ultrasound abdominal limited, 11/24/16. HISTORY Pain. Pain since last evening around 8 p.m. Nausea, vomiting. No surgical history. TECHNIQUE Real-time ultrasonography of the right upper quadrant performed. COMPARISON Comparison to CT examination, 11/24/16. FINDINGS The pancreas obscured by bowel gas artifact. Pancreas unremarkable on CT. The portal vein is patent with normal direction of flow. The liver is normal in size and contour. Hepatic echogenicity suggests fatty infiltration. No focal parenchymal abnormality is seen. Right kidney measures 9.03 cm in greatest length. No hydronephrosis or nephrolithiasis. No cystic or solid mass lesion. Gallbladder difficult to visualize due to bowel gas artifact. In the lower gallbladder segment/gallbladder neck, there is a 6-12 mm echogenic focus without distinct posterior sonographic shadowing. This could represent an area of tumefactive sludge or gallbladder polyp. It corresponds to a similar finding on prior CT examination. In the absence of prior examinations demonstrating prolonged stability, 6-month ultrasound follow up would be recommended. There is no pericholecystic fluid or gallbladder wall thickening. There is no intra or extrahepatic biliary ductal dilatation. Common duct measures 4.2 mm in diameter. IMPRESSION 1. Fatty infiltration of liver. Liver normal in size and contour with no focal suspicious parenchymal abnormalities seen. STS. [facility] A Service of [facility] & [facility] RADIOLOGY TEXT RESULTS PATIENT: SHAYLA MILLER LOCATION: [facility] 236-01 : 38 UNIT #: [id number] AGE: [address]: La Recio MD SEX: M ORDER DR: 2. No sonographic findings of cholecystitis. 3. 6-12 mm echogenic focus in the lower gallbladder segment/gallbladder neck without distinct posterior sonographic shadowing. This most likely represents tumefactive sludge or gallbladder wall polyp. Corresponding finding on CT examination. In absence of prior studies demonstrating prolonged stability, 6-month ultrasound follow up recommended. 4. Right kidney normal. 5. Pancreas largely obscured by bowel gas artifact. Pancreas appeared unremarkable on earlier CT examination. Dictated by... Bhupendra Jenkins M.D. THIS IS AN ELECTRONICALLY VERIFIED REPORT Bhupendra Jenkins M.D. at 11/28/2016 4:56 PM Will TD: 11/24/2016 15:12 JOB #: [id number] MEDICAL IMAGING REPORT Page 1 of 1 COPY
--- NOTE | ~2016-11-24 | HP ---
Unit #: [id number] #: [id number] Patient: SHAYLA MILLER [id number] [facility] [address] [place], [place] [address] [id number] MR#: [id number] NAME: SHAYLA MILLER ROOM: 17786 Age: 75 Sex: M Admission Date: 11/24/2016 : 1940 Attending Physician: Brittaney Tsang M.D. Primary Care Physician: No Primary Care Physician HISTORY AND PHYSICAL CHIEF COMPLAINT Abdominal pain. HISTORY OF PRESENT ILLNESS The patient is a 75-year-old male with a past medical history of BPH, who presented to the emergency department for evaluation of the above. The patient states that he was in his usual state of health until the evening prior to admission, when he started having abdominal pain. He states that the pain is in his upper abdomen. He describes it as "sharp" and it radiates around his left side to the back. It has been fairly constant in nature. There are no exacerbating or alleviating factors. He denies any similar pain. He states that he has had nausea and vomiting in association with the pain. His last bowel movement was yesterday and normal. He has not passed gas since that time. He denies any fever. No chest pain. No cough or cold symptoms. In the emergency department a CT of the abdomen and pelvis was done and showed findings concerning for possible acute enteritis. Additionally, there is possible developing closed loop bowel obstruction. He is being admitted to [facility] [place] for evaluation and further treatment. PAST MEDICAL HISTORY BPH with a history of urinary retention, requiring hospitalization in [place] in the 1980s. PAST SURGICAL HISTORY None. SOCIAL HISTORY The patient is from [place]. He is here visiting a girlfriend. He denies tobacco or alcohol use. 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 His code status is a do not resuscitate. FAMILY HISTORY Notable for his mother having cerebrovascular accident. His dad of a myocardial infarction around the age of 65. ALLERGIES No known drug allergies. HOME MEDICATIONS 1. Flomax 0.4 mg daily. Unit #: [id number] #: [id number] Patient: SHAYLA MILLER 2. Omeprazole 40 mg daily. 3. Proscar 5 mg daily. REVIEW OF SYSTEMS A complete review of systems is negative except as indicated in the history of present illness. PHYSICAL EXAMINATION GENERAL: The patient is a male who is awake and alert, in no acute distress. VITALS: Temperature 97.3, pulse 63, respiratory rate 22, blood pressure 176/73, oxygen saturation 100% on room air. HEENT: The head is atraumatic. Mucous membranes are dry. NECK: Supple. Trachea midline. LUNGS: Clear to auscultation bilaterally with no increased work of breathing. HEART: Regular rate and rhythm. ABDOMEN: Soft. He is tender to palpation in the epigastric area. Bowel sounds are present in all four quadrants. EXTREMITIES: Nontender with no pedal edema. NEUROLOGIC: The patient is awake and alert. He follows commands. PSYCHIATRIC: Mood and affect are normal. The patient is cooperative. SKIN: Skin of examined areas is warm and dry. DIAGNOSTIC STUDIES IMAGING: CT of the abdomen and pelvis shows findings concerning for enteritis and possible bowel obstruction. There is also a density in the left breast concerning for possible asymmetric gynecomastia. Additionally, there are multiple noncalcified lung nodules as well as a hyper-enhancing focus in the right hepatic lobe. LABORATORY: CBC notable for a white blood cell count of 12.3. CMP is notable for glucose of 143, lipase 20. Urinalysis is notable for trace protein and 3+ ketones. CARDIOVASCULAR: EKG shows normal sinus rhythm with a rate of 64 beats per minute. ASSESSMENT The patient is a 75-year-old male with 1. Abdominal pain. CT shows findings concerning for possible enteritis versus developing bowel obstruction. 2. Nausea/vomiting. 3. Leukocytosis. 4. BPH. 5. Possible gynecomastia. 6. Lung nodules. 7. Right liver lesion. PLAN 1. Admit for observation to intermediate level. 2. Normal saline at 75 cc an hour. 3. N.p.o. 4. P.r.n. Dilaudid. 5. P.r.n. Zofran. 6. EKG and cardiac enzymes. 7. Protonix. 8. Check right upper quadrant ultrasound. Unit #: [id number] #: [id number] Patient: SHAYLA MILLER 9. Consult [facility] regarding abdominal pain. 10. Blood cultures times two for further evaluation of leukocytosis. 11. Strict ins and outs. 12. The patient will need outpatient followup regarding gynecomastia, including possible mammography. 13. The patient needs repeat imaging to follow up lung nodules. 14. The patient needs hepatic protocol CT for further evaluation of liver lesions. 15. SCDs for DVT prophylaxis. 16. Additional workup and consultants based on the above. CODE STATUS The patient is a do not resuscitate. Dictated by Brittaney Tsang M.D. Patrick TD: 11/24/2016 11:18 JOB #: [id number] HISTORY AND PHYSICAL Page 1 of 1 X Brittaney Tsang MD X HISTORY AND PHYSICAL
--- NOTE | ~2016-11-24 | XA30 ---
[facility] A Service of [facility] RADIOLOGY TEXT RESULTS PATIENT: SHAYLA MILLER LOCATION: A : 38 UNIT #: [id number] AGE: [address]: La Recio MD SEX: M ORDER DR: [id number] [facility]. [place], [place] [address] [id number] MR#: [id number] Acc #: [id number] NAME: SHAYLA MILLER : 1940 SEX: M STUDY DATE/TIME: 12/01/2016 14:55 UNIT: [facility] ROOM: [facility] STUDY DESCRIPTION: XA Arthrocentesis Major Joint Attending Physician: La Recio M.D. Ordering Physician: Joseph Colunga M.D. Primary Care Physician: No Primary Care Physician MEDICAL IMAGING REPORT This report is preliminary unless electronic signature is present PROCEDURE Ultrasound-guided left knee aspiration. INDICATIONS Left knee swelling and effusion. The risks, benefits, and alternatives of the procedure discussed with the patient, informed consent was obtained. In the procedure room a time-out was performed confirming correct patient and procedure. All elements maximum sterile-barrier technique utilized according to guidelines appropriate for the procedure. TECHNIQUE/FINDINGS Left knee x-ray from yesterday was reviewed. This demonstrated a small effusion in the suprapatellar bursal region. This area was ultrasounded and was confirmed to contain fluid. The overlying skin was prepped and draped usual sterile fashion. 1% lidocaine utilized to anesthetize the skin and underlying subcutaneous tissues. Next, under direct ultrasound guidance a 50 mL of light yellow fluid was aspirated with a 22-gauge needle and sent for the requested labs. The needle was removed and a sterile dressing was applied. No immediate complications. IMPRESSION Technically successful left knee fluid aspiration. Dictated by... Evan Mosqueda M.D. THIS IS AN ELECTRONICALLY VERIFIED REPORT Evan Mosqueda M.D. at 12/02/2016 5:15 PM MERLYN/petar [facility] A Service of [facility] & [facility] RADIOLOGY TEXT RESULTS PATIENT: SHAYLA MILLER LOCATION: [facility] 236-01 : 38 UNIT #: [id number] AGE: [address]: La Recio MD SEX: M ORDER DR: TD: 12/01/2016 22:43 JOB #: [id number] MEDICAL IMAGING REPORT Page 1 of 1 COPY
--- NOTE | ~2016-11-24 | CR169 ---
[facility] A Service of [facility] RADIOLOGY TEXT RESULTS PATIENT: SHAYLA MILLER LOCATION: C2A : 38 UNIT #: [id number] AGE: [address]: La Recio MD SEX: M ORDER DR: [id number] [facility] [address] [facility]. [place], [place] [address] [id number] I MR#: [id number] Acc #: [id number] NAME: SHAYLA MILLER : 1940 SEX: M STUDY DATE/TIME: 11/30/2016 16:25 UNIT: [facility] ROOM: [facility] STUDY DESCRIPTION: CR Knee 2 Views Lt Attending Physician: La Recio M.D. Ordering Physician: La Recio M.D. Primary Care Physician: Primary Care Physician No MEDICAL IMAGING REPORT This report is preliminary unless electronic signature is present EXAM Left knee, 11/30/2016. HISTORY 75-year-old male complaining of left knee pain and swelling noted earlier today. TECHNIQUE Two-view left knee series. FINDINGS No fracture or other acute osseous abnormality. Knee joint effusion is noted with prepatellar soft tissue swelling. There is also subcutaneous edema throughout the visualized leg. Articular chondrocalcinosis. IMPRESSION 1. No acute osseous abnormality. 2. Knee joint effusion and prepatellar soft tissue swelling. Dictated by... Ruy Parra M.D. THIS IS AN ELECTRONICALLY VERIFIED REPORT Ruy Parra M.D. at 12/01/2016 4:35 PM TREVER/criselda TD: 11/30/2016 22:35 JOB #: [id number] MEDICAL IMAGING REPORT Page 1 of 1 COPY
[2016-11-24 02:26] LABS: BASOPHIL% 0.4 % (0-2.5); EOSINOPHIL# 0.1 X10e3 (0-0.7); EOSINOPHIL% 0.5 % (0.0-7.0); HEMATOCRIT 44.6 % (38.0-50.0); HEMOGLOBIN 14.9 gm/dL (13.0-16.0); LYMPHOCYTE# 1.1 X10e3 (1.0-3.5); LYMPHOCYTE% 9.2 % (17.0-45.0); MEAN CELL VOLUME 88.7 FL (83-96); MEAN CORPUSCULAR HEMOGLOBIN 29.7 PG (28-34); MEAN CORPUSCULAR HGB CONC 33.5 g/dL (30-36); MEAN PLATELET VOLUME 7.5 FL (6.5-11.5); MONOCYTE# 0.5 X10e3 (0-1.0); MONOCYTE% 3.9 % (3.0-12.0); NEUTROPHIL# 10.6 X10e3 (1.5-7.1); PLATELET COUNT 335 X10e3 (140-420); RED BLOOD COUNT 5.03 X10e (3.90-5.60); RED CELL DISTRIBUTION WIDTH 13.6 % (11.0-15.5); WHITE BLOOD COUNT 12.3 X10e3 (4.0-10.5)
[2016-11-24 02:27] LABS: DIFF IND NO
[2016-11-24 02:50] LABS: ALBUMIN SERUM 4.6 g/dL (3.5-5.0); BILIRUBIN, DIRECT 0.1 mg/dL (0.0-0.2); BILIRUBIN,INDIRECT 0.8 mg/dL (0.0-0.9); BILIRUBIN,TOTAL 0.9 mg/dL (0.2-2.0); BUN/CREATININE RATIO 19.09; CALCIUM SERUM 9.5 mg/dL (8.4-10.2); CREATININE SERUM 1.1 mg/dL (0.6-1.4); GLOM FILT RATE Estimated 64.4 mL/min (>60); POTASSIUM 4.3 mmol/L (3.5-5.1); PROTEIN TOTAL SERUM 7.7 g/dL (6.0-8.3)
[2016-11-24 07:06] LABS: URINE SOURCE CLEAN CATCH
[2016-11-24 07:09] LABS: URINE APPEARANCE CLEAR; URINE BILIRUBIN NEG (NEG); URINE BLOOD NEG (NEG); URINE COLOR YELLOW; URINE GLUCOSE NEG (NEG); URINE KETONE 3+ (NEG); URINE LEUKOCYTE ESTERASE NEG (NEG); URINE NITRATE NEG (NEG); URINE PH 7.5 (5-8); URINE PROTEIN TRACE (NEG); URINE SPECIFIC GRAVITY 1.053 (1.003-1.035)
[2016-11-24 07:12] LABS: CULTURE INDICATED? NO
[2016-11-24] MEDS ORDERED: FLOMAX0.4 M1 PO (09:25)
[2016-11-24] MEDS ORDERED: OMEPRAZOLE40 M1 PO (09:27)
[2016-11-24] MEDS ORDERED: PROSCAR5 MG PO (09:34)
[2016-11-24 11:47] LABS: %MB 3.8 % (0.0-4.0); MB 2.3 ng/ml
[2016-11-24 16:57] LABS: CK TOTAL 58 IU/L (36-174)
[2016-11-25 05:35] LABS: BASOPHIL% 0.1 % (0-2.5); HEMATOCRIT 44.2 % (38.0-50.0); HEMOGLOBIN 14.8 gm/dL (13.0-16.0); LYMPHOCYTE# 1.4 X10e3 (1.0-3.5); LYMPHOCYTE% 9.6 % (17.0-45.0); MEAN CELL VOLUME 88.6 FL (83-96); MEAN CORPUSCULAR HEMOGLOBIN 29.7 PG (28-34); MEAN CORPUSCULAR HGB CONC 33.6 g/dL (30-36); MEAN PLATELET VOLUME 7.6 FL (6.5-11.5); MONOCYTE# 0.9 X10e3 (0-1.0); MONOCYTE% 6.5 % (3.0-12.0); NEUTROPHIL# 11.8 X10e3 (1.5-7.1); NEUTROPHIL% 83.8 % (40-75); PLATELET COUNT 329 X10e3 (140-420); RED BLOOD COUNT 4.99 X10e (3.90-5.60); RED CELL DISTRIBUTION WIDTH 14.2 % (11.0-15.5); WHITE BLOOD COUNT 14.1 X10e3 (4.0-10.5)
[2016-11-25 05:36] LABS: DIFF IND NO
[2016-11-25 06:13] LABS: BILIRUBIN,TOTAL 0.7 mg/dL (0.2-2.0); CALCIUM SERUM 9.1 mg/dL (8.4-10.2); GLOM FILT RATE Estimated 72.3 mL/min (>60); POTASSIUM 4.9 mmol/L (3.5-5.1); PROTEIN TOTAL SERUM 6.7 g/dL (6.0-8.3)
[2016-11-25 08:08] LABS: AMYLASE 102 U/L (0-46); LIPASE 25 U/L (22-51)
[2016-11-26 05:23] LABS: HEMATOCRIT 39.7 % (38.0-50.0); HEMOGLOBIN 13.3 gm/dL (13.0-16.0); MEAN CELL VOLUME 89.5 FL (83-96); MEAN CORPUSCULAR HGB CONC 33.5 g/dL (30-36); MEAN PLATELET VOLUME 7.6 FL (6.5-11.5); RED BLOOD COUNT 4.44 X10e (3.90-5.60); RED CELL DISTRIBUTION WIDTH 13.7 % (11.0-15.5)
[2016-11-26 06:10] LABS: ALBUMIN SERUM 3.7 g/dL (3.5-5.0); BILIRUBIN,TOTAL 0.6 mg/dL (0.2-2.0); CALCIUM SERUM 8.2 mg/dL (8.4-10.2); GLOM FILT RATE Estimated 72.3 mL/min (>60); POTASSIUM 4.5 mmol/L (3.5-5.1); PROTEIN TOTAL SERUM 6.6 g/dL (6.0-8.3)
[2016-11-27 07:12] LABS: HEMATOCRIT 38.1 % (38.0-50.0); HEMOGLOBIN 12.6 gm/dL (13.0-16.0); MEAN CELL VOLUME 89.2 FL (83-96); MEAN CORPUSCULAR HEMOGLOBIN 29.6 PG (28-34); MEAN CORPUSCULAR HGB CONC 33.2 g/dL (30-36); MEAN PLATELET VOLUME 7.4 FL (6.5-11.5); RED BLOOD COUNT 4.27 X10e (3.90-5.60); RED CELL DISTRIBUTION WIDTH 13.8 % (11.0-15.5); WHITE BLOOD COUNT 7.9 X10e3 (4.0-10.5)
[2016-11-27 08:06] LABS: ALBUMIN SERUM 3.3 g/dL (3.5-5.0); BILIRUBIN,TOTAL 0.5 mg/dL (0.2-2.0); CALCIUM SERUM 8.2 mg/dL (8.4-10.2); CREATININE SERUM 0.9 mg/dL (0.6-1.4); GLOM FILT RATE Estimated 82.1 mL/min (>60); PROTEIN TOTAL SERUM 5.9 g/dL (6.0-8.3)
[2016-11-28 05:31] LABS: HEMATOCRIT 35.6 % (38.0-50.0); HEMOGLOBIN 12.3 gm/dL (13.0-16.0); MEAN CELL VOLUME 88.5 FL (83-96); MEAN CORPUSCULAR HEMOGLOBIN 30.6 PG (28-34); MEAN CORPUSCULAR HGB CONC 34.6 g/dL (30-36); MEAN PLATELET VOLUME 7.7 FL (6.5-11.5); RED BLOOD COUNT 4.02 X10e (3.90-5.60); RED CELL DISTRIBUTION WIDTH 13.5 % (11.0-15.5)
[2016-11-28 05:35] LABS: WHITE BLOOD COUNT 3.2 X10e3 (4.0-10.5)
[2016-11-28 06:35] LABS: ALBUMIN SERUM 2.8 g/dL (3.5-5.0); BILIRUBIN,TOTAL 1.3 mg/dL (0.2-2.0); BUN/CREATININE RATIO 31.11; CALCIUM SERUM 7.6 mg/dL (8.4-10.2); CREATININE SERUM 0.9 mg/dL (0.6-1.4); GLOM FILT RATE Estimated 82.1 mL/min (>60); POTASSIUM 3.4 mmol/L (3.5-5.1); PROTEIN TOTAL SERUM 5.2 g/dL (6.0-8.3)
[2016-11-29 01:36] LABS: HEMATOCRIT 35.6 % (38.0-50.0); MEAN CELL VOLUME 89.1 FL (83-96); MEAN CORPUSCULAR HGB CONC 33.6 g/dL (30-36); MEAN PLATELET VOLUME 7.5 FL (6.5-11.5); RED BLOOD COUNT 3.99 X10e (3.90-5.60); RED CELL DISTRIBUTION WIDTH 13.8 % (11.0-15.5)
[2016-11-29 01:37] LABS: WHITE BLOOD COUNT 7.2 X10e3 (4.0-10.5)
[2016-11-29 01:55] LABS: CALCIUM SERUM 7.1 mg/dL (8.4-10.2); GLOM FILT RATE Estimated 72.3 mL/min (>60); MAGNESIUM 2.1 mg/dL (1.6-3.0); POTASSIUM 3.8 mmol/L (3.5-5.1)
[2016-11-30 06:49] LABS: POTASSIUM 3.5 mmol/L (3.5-5.1)
[2016-12-01 07:05] LABS: HEMATOCRIT 36.4 % (38.0-50.0); HEMOGLOBIN 12.2 gm/dL (13.0-16.0); MEAN CELL VOLUME 87.7 FL (83-96); MEAN CORPUSCULAR HEMOGLOBIN 29.4 PG (28-34); MEAN CORPUSCULAR HGB CONC 33.6 g/dL (30-36); MEAN PLATELET VOLUME 7.5 FL (6.5-11.5); RED BLOOD COUNT 4.15 X10e (3.90-5.60); RED CELL DISTRIBUTION WIDTH 13.4 % (11.0-15.5); WHITE BLOOD COUNT 12.6 X10e3 (4.0-10.5)
[2016-12-01 08:02] LABS: BUN/CREATININE RATIO 22.85; CALCIUM SERUM 7.6 mg/dL (8.4-10.2); CREATININE SERUM 0.7 mg/dL (0.6-1.4); GLOM FILT RATE Estimated 91.1 mL/min (>60); MAGNESIUM 1.8 mg/dL (1.6-3.0); POTASSIUM 3.1 mmol/L (3.5-5.1)
[2016-12-01 15:39] LABS: BF CRYSTAL EXAM NO CRYSTALS SEEN
[2016-12-01 15:40] LABS: BODY FLUID APPEARANCE CLOUDY; BODY FLUID SOURCE SYNOVIAL
[2016-12-02 05:39] LABS: HEMATOCRIT 34.5 % (38.0-50.0); HEMOGLOBIN 11.7 gm/dL (13.0-16.0); MEAN CELL VOLUME 87.1 FL (83-96); MEAN CORPUSCULAR HEMOGLOBIN 29.5 PG (28-34); MEAN CORPUSCULAR HGB CONC 33.8 g/dL (30-36); MEAN PLATELET VOLUME 7.5 FL (6.5-11.5); RED BLOOD COUNT 3.96 X10e (3.90-5.60); RED CELL DISTRIBUTION WIDTH 13.2 % (11.0-15.5); WHITE BLOOD COUNT 13.3 X10e3 (4.0-10.5)
[2016-12-02 06:53] LABS: BUN/CREATININE RATIO 18.75; CALCIUM SERUM 7.8 mg/dL (8.4-10.2); CREATININE SERUM 0.8 mg/dL (0.6-1.4); GLOM FILT RATE Estimated 86.2 mL/min (>60); POTASSIUM 3.9 mmol/L (3.5-5.1)
[2016-12-03 06:42] LABS: HEMATOCRIT 33.5 % (38.0-50.0); HEMOGLOBIN 11.4 gm/dL (13.0-16.0); MEAN CELL VOLUME 86.1 FL (83-96); MEAN CORPUSCULAR HEMOGLOBIN 29.2 PG (28-34); MEAN CORPUSCULAR HGB CONC 33.9 g/dL (30-36); MEAN PLATELET VOLUME 7.4 FL (6.5-11.5); RED BLOOD COUNT 3.89 X10e (3.90-5.60); RED CELL DISTRIBUTION WIDTH 13.5 % (11.0-15.5)
[2016-12-03 06:56] LABS: BUN/CREATININE RATIO 13.33; CALCIUM SERUM 7.9 mg/dL (8.4-10.2); CREATININE SERUM 0.9 mg/dL (0.6-1.4); GLOM FILT RATE Estimated 82.1 mL/min (>60); MAGNESIUM 2.1 mg/dL (1.6-3.0); POTASSIUM 4.2 mmol/L (3.5-5.1)
[2016-12-04 05:34] LABS: HEMATOCRIT 34.7 % (38.0-50.0); HEMOGLOBIN 11.7 gm/dL (13.0-16.0); MEAN CELL VOLUME 87.5 FL (83-96); MEAN CORPUSCULAR HEMOGLOBIN 29.4 PG (28-34); MEAN CORPUSCULAR HGB CONC 33.6 g/dL (30-36); MEAN PLATELET VOLUME 7.4 FL (6.5-11.5); RED BLOOD COUNT 3.96 X10e (3.90-5.60); RED CELL DISTRIBUTION WIDTH 13.6 % (11.0-15.5); WHITE BLOOD COUNT 17.5 X10e3 (4.0-10.5)
[2016-12-04 06:18] LABS: BUN/CREATININE RATIO 13.33; CREATININE SERUM 0.9 mg/dL (0.6-1.4); GLOM FILT RATE Estimated 82.1 mL/min (>60); MAGNESIUM 1.9 mg/dL (1.6-3.0); POTASSIUM 4.5 mmol/L (3.5-5.1)
[2016-12-05 06:42] LABS: MAGNESIUM 1.8 mg/dL (1.6-3.0); POTASSIUM 4.3 mmol/L (3.5-5.1)
[2016-12-06 05:21] LABS: HEMATOCRIT 35.4 % (38.0-50.0); MEAN CELL VOLUME 87.8 FL (83-96); MEAN CORPUSCULAR HEMOGLOBIN 29.7 PG (28-34); MEAN CORPUSCULAR HGB CONC 33.8 g/dL (30-36); MEAN PLATELET VOLUME 7.2 FL (6.5-11.5); RED BLOOD COUNT 4.03 X10e (3.90-5.60); RED CELL DISTRIBUTION WIDTH 13.6 % (11.0-15.5); WHITE BLOOD COUNT 12.3 X10e3 (4.0-10.5)
[2016-12-06 05:32] LABS: BUN/CREATININE RATIO 13.33; CALCIUM SERUM 7.9 mg/dL (8.4-10.2); CREATININE SERUM 0.9 mg/dL (0.6-1.4); GLOM FILT RATE Estimated 82.1 mL/min (>60); MAGNESIUM 1.9 mg/dL (1.6-3.0); POTASSIUM 4.5 mmol/L (3.5-5.1)
[2016-12-07 06:07] LABS: BASOPHIL% 0.2 % (0-2.5); EOSINOPHIL# 0.2 X10e3 (0-0.7); EOSINOPHIL% 1.6 % (0.0-7.0); HEMATOCRIT 34.7 % (38.0-50.0); HEMOGLOBIN 11.5 gm/dL (13.0-16.0); LYMPHOCYTE# 1.2 X10e3 (1.0-3.5); LYMPHOCYTE% 8.2 % (17.0-45.0); MEAN CELL VOLUME 88.8 FL (83-96); MEAN CORPUSCULAR HEMOGLOBIN 29.4 PG (28-34); MEAN CORPUSCULAR HGB CONC 33.1 g/dL (30-36); MEAN PLATELET VOLUME 7.2 FL (6.5-11.5); MONOCYTE# 0.9 X10e3 (0-1.0); MONOCYTE% 5.9 % (3.0-12.0); NEUTROPHIL# 12.6 X10e3 (1.5-7.1); NEUTROPHIL% 84.1 % (40-75); PLATELET COUNT 469 X10e3 (140-420); RED BLOOD COUNT 3.91 X10e (3.90-5.60); RED CELL DISTRIBUTION WIDTH 13.6 % (11.0-15.5)
[2016-12-07 06:25] LABS: DIFF IND NO
[2016-12-07 06:39] LABS: CALCIUM SERUM 7.8 mg/dL (8.4-10.2); CREATININE SERUM 0.9 mg/dL (0.6-1.4); GLOM FILT RATE Estimated 82.1 mL/min (>60); POTASSIUM 4.2 mmol/L (3.5-5.1)
[2016-12-08 08:28] LABS: MAGNESIUM 1.8 mg/dL (1.6-3.0); POTASSIUM 4.4 mmol/L (3.5-5.1)
[2016-12-08] MEDS ORDERED: RAPAFLO8 MG PO (12:43)
[2016-12-08] MEDS ORDERED: KEFLEX500 MG PO (12:44)
[2016-12-08] MEDS ORDERED: DOCUSATE SODIU100 MG PO (12:47)
== END 2016-12-08 14:10 | disposition home health service (06) | DRG 335 ==
LOC: CED 00:53 → C2A 08:24 → CEDOF 08:24 → CED 09:47 → CEDOF 09:47 → C3A PCU 18:29 → CEDOF 18:29 → C3A PCU 11-25 07:01 → C2A 11-26 11:29 → C3A PCU 11-26 11:29 → C2A 12-08 14:10
PROVIDERS: Emergency Medicine; Family Medicine; Internal Medicine; Specialist; Student in an Organized Health Care Education/Training Program; Surgery; Urology
PROC: 0DB68ZX Excision of Stomach, Via Natural or Artificial Opening Endoscopic, Diagnostic (ICD-10-PCS; 2016-11-25)
PROC: 0DB38ZX Excision of Lower Esophagus, Via Natural or Artificial Opening Endoscopic, Diagnostic (ICD-10-PCS; 2016-11-25)
PROC: 0D9670Z Drainage of Stomach with Drainage Device, Via Natural or Artificial Opening (ICD-10-PCS; 2016-11-25)
PROC: 0DN80ZZ Release Small Intestine, Open Approach (ICD-10-PCS; 2016-11-28)
PROC: 0S9D3ZX Drainage of Left Knee Joint, Percutaneous Approach, Diagnostic (ICD-10-PCS; 2016-11-30)
PROC: 0VT08ZZ Resection of Prostate, Via Natural or Artificial Opening Endoscopic (ICD-10-PCS; principal; 2016-12-06 11:30)
DX: K56.5 Intestinal adhesions [bands] with obstruction (postinfection) (principal); J96.01 Acute respiratory failure with hypoxia; S36.892A Contusion of other intra-abdominal organs, initial encounter; R31.0 Gross hematuria; R11.2 Nausea with vomiting, unspecified; D72.829 Elevated white blood cell count, unspecified; R91.8 Other nonspecific abnormal finding of lung field; K76.9 Liver disease, unspecified; M25.462 Effusion, left knee; M25.461 Effusion, right knee; M11.262 Other chondrocalcinosis, left knee; M11.261 Other chondrocalcinosis, right knee; N40.1 Benign prostatic hyperplasia with lower urinary tract symptoms; R33.8 Other retention of urine; Z87.891 Personal history of nicotine dependence; Z66 Do not resuscitate; K82.4 Cholesterolosis of gallbladder; K29.50 Unspecified chronic gastritis without bleeding; K21.9 Gastro-esophageal reflux disease without esophagitis; K52.9 Noninfective gastroenteritis and colitis, unspecified; E87.6 Hypokalemia; K56.7 Ileus, unspecified; M65.862 Other synovitis and tenosynovitis, left lower leg; M65.861 Other synovitis and tenosynovitis, right lower leg
CPT/HCPCS: 36415; 71020; 73560; 74020; 74177; 74250; 76705; 76942; 80048; 80053; 80076; 81003; 82150; 82308; 82550; 82553; 83605; 83690; 83735; 83880; 84132; 84484; 84550; 85025; 85027; 87040; 87070; 87075; 87205; 88305; 88312; 89051; 89060; 93005; 94640; 94760; 96361; 96374; 96375; 97116; 97162; 97530; 99285; C9113; G8978-GP; G8979-GP; G8980-GP; J0131; J0330; J0690; J0696; J1100; J1170; J1650; J2250; J2270; J2405; J2543; J2550; J2710; J3010; J3475; Q9967